=== PATIENT | male | born 1945 | race Caucasian/White ===

== ENCOUNTER → 2019-05-26 | Outpatient (CLI) | payer OTHER, BC ==
[~2019-05-26] MED LIST: ASPIRIN81 M2 PO; CARDIZEM CD120 MG PO; DILTIAZEM ER120 MG PO; FISH OIL 1,2001 EAC3 PO; LIPITOR40 MG PO; LOPRESSOR25 PO; LORTAB 5 MG/5001 TA1; METOPROLOL TART25 MG PO; MULTIVITAMINS PO; NORCO 5-325 TA1 EAC1 PO; PACERONE 200 M200 M1 PO; PACERONE200 MG PO; PEPCID AC20 MG PO; PERIDEX 0.12%473 M1; TAMSULOSIN HCL0.4 M1 PO; VITAMIN D3 PO; VITAMIN D3-ALO1 EACH PO; XARELTO20 MG PO; ZANTAC 150MG T150 M1 PO; ZOCOR 20 MG TAB20 M1 PO
== END ==
LOC: SJCVC 11:05
PROVIDERS: ATTEND Internal Medicine Cardiovascular Disease
DX: R94.31 Abnormal electrocardiogram [ECG] [EKG] (principal); I25.10 Atherosclerotic heart disease of native coronary artery without angina pectoris; I35.0 Nonrheumatic aortic (valve) stenosis; E78.00 Pure hypercholesterolemia, unspecified; R60.9 Edema, unspecified

== ENCOUNTER 2019-08-11 16:58 | Inpatient (IN) | payer OTHER, BC ==
[~2019-08-11] VITALS: Ht 177.8 cm; Wt 94.8 kg
[2019-08-11 16:58] VITALS: BP 143/95
[~2019-08-11 16:58] MED LIST changes: -CARDIZEM CD120 MG PO; -DILTIAZEM ER120 MG PO; -LIPITOR40 MG PO; -METOPROLOL TART25 MG PO; -NORCO 5-325 TA1 EAC1 PO; -PACERONE 200 M200 M1 PO; -PACERONE200 MG PO; -PEPCID AC20 MG PO; -VITAMIN D3 PO; -VITAMIN D3-ALO1 EACH PO; -XARELTO20 MG PO
[2019-08-11 17:48] LABS: ABSOLUTE NEUTROPHILS 4.8 thou/uL (1.4-8.2); EOSINOPHILS 1.5 % (0.0-3.0); HEMATOCRIT 47.7 % (42.0-52.0); HEMOGLOBIN 15.8 gm/dL (14.0-18.0); LYMPHOCYTES 24.7 % (24.0-44.0); MCH 30.4 pg (26.0-34.0); MCHC 33.2 g/dL (28.0-37.0); MCV 91.7 fL (80.0-100.0); MONOCYTES 10.1 % (1.0-8.0); PLATELET COUNT 172 thou/uL (150-400); POLYS 62.7 % (36.0-66.0); WBC 7.7 thou/uL (4.0-11.0)
[2019-08-11 18:00] LABS: CALCIUM 9.4 mg/dL (8.5-10.1); CREATININE 1.3 mg/dL (0.7-1.3); POTASSIUM 4.6 mmol/L (3.5-5.1)
[2019-08-11 18:11] LABS: ALBUMIN 3.9 g/dL (3.4-5.0); MAGNESIUM 2.2 mg/dL (1.8-2.4); TOTAL BILIRUBIN 0.5 mg/dL (<0.1-1.0); TOTAL PROTEIN 7.6 g/dL (6.4-8.2)
[2019-08-11 18:12] LABS: AMP/METHAMP Negative (Negative); BARBITURATES Negative (Negative); BENZODIAZEPINES Negative (Negative); COCAINE Negative (Negative); METHADONE Negative (Negative); OPIATES Negative (Negative); PCP Negative (Negative)
[2019-08-11 18:16] LABS: APTT 27.7 Seconds (24.5-32.8); PROTIME 10.3 Seconds (9.3-11.4)
[2019-08-11 18:18] LABS: TROPONIN-I 0.68 ng/mL (<0.06)
[2019-08-11 20:21] VITALS: BP 107/49
--- NOTE | 2019-08-11 20:35 | NUR ---
CALLED SECOND TIME AND PUT ON HOLD.
[2019-08-11 20:52] VITALS: BP 110/48
[2019-08-11 20:58] LABS: HEMATOCRIT 48.3 % (42.0-52.0); MCH 30.4 pg (26.0-34.0); MCHC 33.1 g/dL (28.0-37.0); MCV 92.1 fL (80.0-100.0); RBC 5.24 mil/uL (4.50-6.00); RDW 15.1 % (10.5-14.5); WBC 10.6 thou/uL (4.0-11.0)
[2019-08-11 21:14] LABS: INR 1.1; PROTIME 11.1 Seconds (9.3-11.4)
[2019-08-11 21:54] LABS: CHOLESTEROL 141 mg/dL (<200); HDL CHOLESTEROL 36 mg/dL (>40); LDL CHOLESTEROL 83 mg/dL (<100); TC:HDL 3.9 Ratio (Not establshd); TRIGLYCERIDE 110 mg/dL (<150); VLDL 22 mg/dL (<40)
[2019-08-11 21:58] VITALS: BP 139/53
[2019-08-11] MEDS ORDERED: VITAMIN D3-ALO1 EACH PO (23:11)
[2019-08-11 23:48] VITALS: BP 104/54
[2019-08-12] VITALS (14 sets, daily range): BP systolic 109–141; BP diastolic 54–68
--- NOTE | 2019-08-12 01:13 | NUR ---
ADMITTED FROM ER PER CART AT 2150. ORIENTED TO ROOM AND FLOOR POLICIES. ADMISSION PRCESS STARTED AND COMPLETED. BENEDICTO CATERING SOUS CHEF HERE TO SEE PATIENT AT 2200. DENIES COMPLAINTS OF CHEST PAIN, SHORTNESS OF AIR OR SYNCOPE. PATIENT IN AFIB ON ADMISSION AND CONVERTED BACK TO SR AT 2350. ON CARDIZEM GTT STARTED IN ER AND INITIATED HEPARIN GTT PER PROTOCOL. CONTINUE TO ASSES CLOSELY.
[2019-08-12 06:02] LABS: CREATININE 1.2 mg/dL (0.7-1.3); POTASSIUM 4.3 mmol/L (3.5-5.1)
[2019-08-12 06:08] LABS: TROPONIN-I 0.98 ng/mL (<0.06)
--- NOTE | 2019-08-12 06:46 | NUR ---
SLEPT MOST OF SHIFT PAST ADMISSION. DENIES COMPLAINTS OF CHEST PAIN OR SHORTNESS OF AIR. TROPONIN REMAINS ELEVATED. UP AD MICHELLE IN ROOM WITH STEADY GAIT. WORKING ON GOALS AND PLAN OF CARE FOR NOC. REMAINS IN SR WITH PVC AND PAC. CONTINUE TO ASSES.
--- NOTE | 2019-08-12 08:09 | NUR ---
PT ASSESSED, VSS, A+OX4, POC REVIEWED WITH PT. HE VERBALIZED UNDERSTANDING, HR IS 62, CARDIZEM GTT DECREASED TO 5 MG/HR, WILL WAIT FOR CARDIO CONSULT, WILL MONITOR
--- NOTE | 2019-08-12 10:23 | NUR ---
PT IN SR, PER DR RUDD BOTH HEPARIN GTT AND CARDIZEM GTT WERE DISCONTINUED.
--- NOTE | 2019-08-12 11:00 | EKG ---
[facility] [place] [address] ELECTROCARDIOGRAM REPORT Name: SEAN DE Room #: 212-P ADM IN M.R.#: [id number] Admission: 08/11/19 Attend Phys: Nelson Arenas MD Discharge: Date of : 47 Report #: [id number] THIS REPORT FOR: cc: Jarrod Harrell James A. DO Park,Elmer Degroot MD ~ THIS REPORT FOR: //name// [facility] ED Test Date: 2019-08-11 Test Time: 17:23:43 Pat Name: SEAN DE Department: Room: [facility] Gender: M [facility] 1945 Requested By: Valeriano Spicer Order Number: [id number] MD: Elmer Harden Measurements Intervals [place] Rate: 149 P: 0 RI: 67 QRS: 24 QRSD: 95 T: 251 QT: 314 QTc: 495 Interpretive Statements Supraventricular tachycardia Repolarization abnormality, prob rate related No previous ECG available for comparison Electronically Signed On 08-12-2019 10:58:16 CDT by Elmer Harden [email or web address] <ELECTRONICALLY SIGNED> By: Elmer Harden MD 08/12/19 1058 172 172 Elmer Harden MD /MIGUEL
--- NOTE | 2019-08-12 11:00 | EKG ---
[facility] [place] [address] ELECTROCARDIOGRAM REPORT Name: SEAN DE Room #: 212-P ADM IN M.R.#: [id number] Admission: 08/11/19 Attend Phys: Nelson Arenas MD Discharge: Date of : 46 Report #: [id number] THIS REPORT FOR: cc: Jarrod Harrell James A. 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
--- NOTE | 2019-08-12 12:38 | CATHLAB ---
[facility] [place] [address] INVASIVE PROCEDURE REPORT Name: SEAN ED Room #: 212-P ADM IN M.R.#: [id number] Admission: 08/11/19 Attend Phys: Nelson Arenas MD Discharge: Date of : 46 Report #: [id number] THIS REPORT FOR: cc: Jarrod Harrell James A. DO Park, Jin S. MD ~ APPROVED REPORT Study performed: 08/12/2019 10:48:06 Patient Details Patient Status: In-Patient Room #: 212 The patient is a 74 year-old male Event Personnel Elmer Harden Warehouse Examiner, Crystal Wells RN RN, Lynette, Janae Monitor, Nessa Vazquez RTR, METAL WELDER Scrub Procedures Performed Art Access - R femoral artery* 47140 Initial Mod Sed Same Phys/QHP Gr5y 516621 86828 Mod Sed Same Phys/QHP Ea 142257 Left Heart Cath w/or w/o Coronaries 3262912 LHC FFR 9904581 FFR Hemostasis w/ Mynx Indication Non-STEMI , Arrhythmia, Palpitations, Atrial fibrillation Risk Factors Hypercholesterolemia, Coronary Artery DiseaseHypertension Procedure Narrative The patient was brought urgently to the Cardiac Catheterization Laboratory and was prepped and draped in a sterile manner. The Right Groin^ was infiltrated with 1% Lidocaine subcutaneous anesthesia. A PINNACLE 4FR Sheath #[id number] sheath was inserted into the RFA^. Coronary angiography was performed using coronary diagnostic catheters. The right coronary system was accessed and visualized with a JR 4 catheter. The left coronary system was accessed and visualized with a JL 5 catheter. The left ventricle was accessed and visualized with a Pigtail catheter. Left ventricular/Aortic Valve gradient assessed via catheter pullback. Pre-demployment femoral angiogram was performed . Closure device was deployed with a 6 Fr Mynx. The patient tolerated the procedure well and there were no complications associated with the procedure. There was no hematoma. [facility] [address] [place] [address] INVASIVE PROCEDURE REPORT Name: SEAN DE Room #: 212-P [facility]#: [id number] Admission: 08/11/19 Attend Phys: Nelson Arenas MD Discharge: Date of : 46 Report #: [id number] Intraoperative Conscious Sedation Sedation start time: 11:04 Case end Time: 12:00 Fentanyl 50.0 mcg Versed 1.0 mg Fluoro Time: 11.25 minutes Dose: DAP 41869.00 cGycm2 1715 mGy Contrast Type and Amount: Omnipaque 165 ml Coronary Angiography The patient's coronary anatomy is left dominant. Diagnostic Cath Left Main Left main artery is a short segment, with no flow-limiting lesions. LAD The LAD is a moderate-sized caliber vessel, traversing the anterior wall and wrapping on the apex. There is a borderline stenosis in the midsegment of the LAD. IFR was positive at 0.86. Diagonal 1 There is a small caliber vessel, with mild disease at the ostium. Circumflex Left circumflex artery is a dominant vessel supplying 3 OM branches and the left PDA. OM1 This is a moderate-sized caliber vessel, with no flow-limiting lesions. OM2 This is a moderate-sized caliber vessel, with no flow-limiting lesions. OM3 This is a moderate-sized caliber vessel, with no flow-limiting lesions. L PDA There is a severe stenosis, 80% in the proximal segment. Right Coronary There is a small caliber vessel, nondominant with mild disease. Left Ventriculography The left ventricle is normal in size with normal contractility. Hemodynamics The aortic pressure is 127/72 mmHg with a mean of 59 mmHg. The left ventricular pressure is 182/15 mmHg with a mean of mmHg. The left ventricular end diastolic pressure is 32 mmHg. Prox LAD iFR pre 1.0 Prox LAD iFR post 0.86 Conclusion 1. Severe two-vessel disease involving the LAD and the left PDA. [facility] [address] [place] [address] INVASIVE PROCEDURE REPORT Name: SEAN DE Room #: 212-P [facility] IN M.R.#: [id number] Admission: 08/11/19 Attend Phys: Nelson Arenas MD Discharge: Date of : 46 Report #: [id number] IFR of 0.86 involving the LAD stenosis. 2. Normal LV systolic function. 3. Aortic stenosis with a peak gradient of approximately 42 mmHg. 4. Recommend CV surgical consultation. <ELECTRONICALLY SIGNED> By: Elmer Harden MD 08/12/19 1236 1236 1236 Elmer Harden MD /INF
--- NOTE | 2019-08-13 01:03 | NUR ---
PT AMBULATING IN HALLWAYS INDEPENDENTLY AND IS TOLERATING WELL. DENIES PAIN. PLAN FOR DISCHARGE HOME 08/12. RESTING COMFORTABLY. NO NEEDS VOICED. CALL LIGHT WITHIN REACH. FREQUENT OBSERVATION.
[2019-08-13 04:10] LABS: HEMATOCRIT 41.7 % (42.0-52.0); MCH 30.1 pg (26.0-34.0); MCHC 32.7 g/dL (28.0-37.0); MCV 92.1 fL (80.0-100.0); RBC 4.53 mil/uL (4.50-6.00); RDW 15.3 % (10.5-14.5)
[2019-08-13 04:12] LABS: HEMOGLOBIN 13.6 gm/dL (14.0-18.0)
[2019-08-13 04:22] LABS: CALCIUM 8.4 mg/dL (8.5-10.1); CREATININE 1.2 mg/dL (0.7-1.3); POTASSIUM 4.4 mmol/L (3.5-5.1)
[2019-08-13 05:11] VITALS: BP 163/73
[2019-08-13 08:45] VITALS: BP 139/61
--- NOTE | 2019-08-13 12:28 | HC ---
[facility] [place] [address] CONSULTATION Name: SEAN DE Room #: 212-P ADM IN .R.#: [id number] Admission: 08/11/19 Attend Phys: Nelson Arenas MD Discharge: Date of : 46 Report #: [id number] THIS REPORT FOR: cc: Jarrod Harrell,Elmer Kowalski MD ~ CC: Jarrod Arenas DATE OF SERVICE: 08/12/2019 CARDIOLOGY CONSULTATION INDICATIONS: Palpitations. HISTORY OF PRESENT ILLNESS: This is a 74-year-old gentleman with a history of aortic stenosis, nonobstructive CAD, edema, hypercholesterolemia and borderline hypertension, presenting with palpitations. He woke up yesterday morning with palpitations and mild diaphoresis. He denies any chest pains, fever, dyspnea or orthopnea. He has had these episodes in the past, usually resolving on its own. The palpitations lasted all day long, with an average heart rate of 150 beats per minute. He decided to come to the ER for an evaluation. Initial ECG revealed SVT at 150 beats per minute. He was given adenosine with the underlying rhythm of atrial fibrillation/atrial flutter. He was started on IV Cardizem and admitted to the hospital. The second troponin is positive at 0.98. He has been exercising at home on a bicycle for 30 minutes without any issues. There is no recent history of fever, cough or chills. PAST MEDICAL HISTORY: Nonobstructive CAD from 2013. History of moderate aortic stenosis with normal LV systolic function, edema, mild hypercholesterolemia, borderline hypertension. History of nonsustained VT evaluated with an EP study remotely, no inducible ventricular arrhythmia with normal AV node function. ALLERGIES: BETA ELLE CAUSES FATIGUE AND DROWSINESS. MEDICATIONS: Include simvastatin 20 mg daily, tamsulosin, aspirin once a day, ranitidine. SOCIAL HISTORY: Negative for tobacco use. FAMILY HISTORY: Negative for premature CAD. REVIEW OF SYSTEMS: A full 10-point review of systems performed. Only the pertinent positives and negatives are described in HPI. PHYSICAL EXAMINATION: [facility] [address] [place] [address] CONSULTATION Name: SEAN DE Shane Room #: 212-P [facility] IN [facility]#: [id number] Admission: 08/11/19 Attend Phys: Nelson Arenas MD Discharge: Date of : 46 Report #: [id number] VITAL SIGNS: Blood pressure is 120/60, heart rate is 70 beats per minute. GENERAL APPEARANCE: This is a well-developed, well-nourished male in no acute distress. HEENT: Normocephalic, atraumatic. Oral mucosa moist. NECK: Supple. LUNGS: Clear to auscultation. CARDIAC: Regular rate and rhythm, S1, S2 positive. ABDOMEN: Soft, nontender. EXTREMITIES: Trace edema, no cyanosis. NEUROLOGIC: Alert and oriented x 3. ECG reveals atrial fibrillation/flutter, nonspecific ST segment abnormality. LABORATORY VALUES: Creatinine is 1.2, hemoglobin is 16. Peak troponin is 0.98. ASSESSMENT AND PLAN: 1. Atrial fibrillation/flutter, spontaneous conversion to sinus rhythm this morning on IV Cardizem. He has a history of these palpitations, usually self-terminating. Given his symptoms, we will need long-term anticoagulation therapy. 2. Coronary artery disease, positive troponins. I am concerned that he has underlying significant coronary artery disease given the abnormal troponin level. The fast heart rates from his atrial fibrillation essentially was a stress test for the patient. I have discussed with him the pros and cons of a cardiac catheterization. He voices understanding and wishes to proceed. 3. Aortic stenosis/moderate, clinically stable with no symptoms of dyspnea or fatigue with exertion. He exercises on a stationary bike for 30 minutes without any issues. 4. Hypercholesterolemia, continue with statin therapy. 5. Hypertension, would initiate Cardizem, both for blood pressure and heart rate control. Avoid beta elle therapy. <ELECTRONICALLY SIGNED> By: Elmer Harden MD 08/13/19 1228 1017 1225 Elmer Harden MD /nt
--- NOTE | 2019-08-13 13:55 | NUR ---
ASSUMED CARE AT 0700, SHIFT ASSESSMENT DONE, MEDS GIVEN, VSS. HAD AN EPISODE OF AFLUTTER LAST NIGHT. HAD HEART CATH DONE, SEVERE BLOCKAGE, DR MORALES CONSULTED AND HAS SEEN THE PATIENT. STARTED ON CARDIZEM AND AMIODORONE, POSSIBLE DC TOMORROW. PLAN IS OUTPATIENT ECHO ON AND DECIDE ABOUT CABG BASED ON RESULT. UP AD MICHELLE, DENIES ANY PAIN, NSR ON TELE. WILL CONTINUE TO ASSESS AND ASSIST WITH ADLs NEEDED.
[2019-08-13 15:40] VITALS: BP 117/54
[2019-08-13 20:15] VITALS: BP 135/64
--- NOTE | 2019-08-14 03:36 | NUR ---
ASSESSMENT DOCUMENTED.PT BEEN RESTING IN NO ACUTE DISTRESS.A/OX4.VSS.SR/SB ON MONITOR.ON RA W/O RESP DISTRESS.UP AD MICHELLE IN THE ROOM.DENIES PALPITATION.POC IS TO POSSIBLY GOING HOME TODAY WITH F/U AT [facility] OFFICE.WILL CONT TO MONITOR.
[2019-08-14 04:45] VITALS: BP 129/60
[2019-08-14 08:00] VITALS: BP 127/62
[2019-08-14 12:00] VITALS: BP 134/57
--- NOTE | 2019-08-14 14:40 | NUR ---
RECEIVED PT'S CARE AROUND 0730; PT. AOX4; DURING AM ASSESSMENT NO C/O PAIN; AM MEDICATIONS GIVEN; EDUCATED ABOUT GOALS THROUGH THE DAY; ASKED ABOUT D/C ORDERS; ST. "DR. RUDD SAID I CAN GO HOME"; EDUCATED ABOUT D/C PROCESS; ST. UNDERSTANDING; PER DR. RUDD UPDATE DR. STRATTON PT. CAN BE D/C TODAY 08/14/2019; DR. STRATTON NOTIFIED; PT. UPDATE ABOUT D/C STIMATED TIMED; ST. UNDERSTANDING; SR ON THE MONITOR; NO C/O CP; ABLE TO AMBULATE AROUND THE UNIT; EDUCATED ABOUT FALL PREVENTIONS; ST. UNDERSTANDING; ASSESSMENT CHARGED; MONITORING; FOLLOWED POC; WAITING FOR D/C ORDERS ON PLACED;
[2019-08-14 15:10] VITALS: BP 134/57
[2019-08-14] MEDS ORDERED: XARELTO20 MG PO (15:49)
[2019-08-14] MEDS ORDERED: CARDIZEM CD120 MG PO (15:50)
[2019-08-14] MEDS ORDERED: PACERONE 200 M200 M1 PO (15:50)
[2019-08-14 16:12] VITALS: BP 134/57
== END 2019-08-14 17:31 | disposition home or self-care (01) | DRG 281 ==
LOC: ER 16:58 → EROBS 19:45 → 2N 19:45
PROVIDERS: Emergency Medicine; Internal Medicine Cardiovascular Disease; Nurse Practitioner Family; ADMIT Hospitalist
PROC: B2111ZZ Fluoroscopy of Multiple Coronary Arteries using Low Osmolar Contrast (ICD-10-PCS; principal; 2019-08-11)
PROC: 5A2204Z Restoration of Cardiac Rhythm, Single (ICD-10-PCS; principal; 2019-08-11)
PROC: B2151ZZ Fluoroscopy of Left Heart using Low Osmolar Contrast (ICD-10-PCS; principal; 2019-08-11)
PROC: 4A023N7 Measurement of Cardiac Sampling and Pressure, Left Heart, Percutaneous Approach (ICD-10-PCS; principal; 2019-08-11)
DX: I21.4 Non-ST elevation (NSTEMI) myocardial infarction (principal); I47.1 Supraventricular tachycardia; I48.92 Unspecified atrial flutter; I48.20 Chronic atrial fibrillation, unspecified; I25.10 Atherosclerotic heart disease of native coronary artery without angina pectoris; R79.89 Other specified abnormal findings of blood chemistry; E78.00 Pure hypercholesterolemia, unspecified; K21.9 Gastro-esophageal reflux disease without esophagitis; I35.0 Nonrheumatic aortic (valve) stenosis; I10 Essential (primary) hypertension; Z96.1 Presence of intraocular lens; Z90.49 Acquired absence of other specified parts of digestive tract; Z79.82 Long term (current) use of aspirin; Z79.899 Other long term (current) drug therapy
CPT/HCPCS: 10081

== ENCOUNTER → 2019-08-16 | Outpatient (CLI) | payer OTHER, BC ==
[~2019-08-16] MED LIST changes: +CARDIZEM CD120 MG PO; +DILTIAZEM ER120 MG PO; +LIPITOR40 MG PO; +PACERONE 200 M200 M1 PO; +PACERONE200 MG PO; +VITAMIN D3 PO; +VITAMIN D3-ALO1 EACH PO; +XARELTO20 MG PO
== END ==
LOC: SJCVCIMAG 07:41
DX: R94.31 Abnormal electrocardiogram [ECG] [EKG] (principal); I35.1 Nonrheumatic aortic (valve) insufficiency; I35.0 Nonrheumatic aortic (valve) stenosis; I35.8 Other nonrheumatic aortic valve disorders; I11.9 Hypertensive heart disease without heart failure; I25.10 Atherosclerotic heart disease of native coronary artery without angina pectoris; E78.00 Pure hypercholesterolemia, unspecified

== ENCOUNTER → 2019-08-24 | Outpatient (CLI) | payer OTHER, BC ==
[~2019-08-24] MED LIST changes: +METOPROLOL TART25 MG PO; +NORCO 5-325 TA1 EAC1 PO; +PEPCID AC20 MG PO
== END ==
LOC: ULTRA 08:45
PROVIDERS: ATTEND Surgery Vascular Surgery
DX: Z01.818 Encounter for other preprocedural examination (principal); Z95.1 Presence of aortocoronary bypass graft

== ENCOUNTER 2019-09-05 06:00 | Inpatient (IN) | payer OTHER, BC ==
[2019-08-24 10:33] LABS: ABSOLUTE NEUTROPHILS 3.7 thou/uL (1.4-8.2); BASOPHILS 0.6 % (0.0-2.0); EOSINOPHILS 1.3 % (0.0-3.0); HEMATOCRIT 45.1 % (42.0-52.0); HEMOGLOBIN 14.9 gm/dL (14.0-18.0); LYMPHOCYTES 24.1 % (24.0-44.0); MCH 30.3 pg (26.0-34.0); MCHC 33.1 g/dL (28.0-37.0); MCV 91.5 fL (80.0-100.0); MONOCYTES 10.2 % (1.0-8.0); PLATELET COUNT 182 thou/uL (150-400); POLYS 63.8 % (36.0-66.0); RBC 4.92 mil/uL (4.50-6.00); RDW 14.4 % (10.5-14.5); URINE BILIRUBIN NEGATIVE (Negative); URINE BLOOD NEGATIVE (Negative); URINE CLARITY CLEAR; URINE COLOR YELLOW; URINE GLUCOSE-RANDOM* NEGATIVE (Negative); URINE KETONES NEGATIVE (Negative); URINE LEUKOCYTES-REFLEX NEGATIVE (Negative); URINE NITRITE-REFLEX NEGATIVE (Negative); URINE PROTEIN (DIPSTICK) NEGATIVE (Negative); URINE SPECIFIC GRAVITY 1.025 (1.005-1.035); URINE UROBILINOGEN 0.2 E.U./dl (0.2-1.0); WBC 5.8 thou/uL (4.0-11.0)
[2019-08-24 10:48] LABS: INR 1.2; PROTIME 12.1 Seconds (9.3-11.4)
[2019-08-24 10:59] LABS: ALBUMIN 3.8 g/dL (3.4-5.0); CALCIUM 8.7 mg/dL (8.5-10.1); CREATININE 1.3 mg/dL (0.7-1.3); POTASSIUM 4.7 mmol/L (3.5-5.1); TOTAL BILIRUBIN 0.6 mg/dL (0.2-1.0)
[2019-08-25 00:08] LABS: GLYCOHEMOGLOBIN (HGB A1C) 6.1 % (4.8-5.6)
[2019-09-05] VITALS (17 sets, daily range): BP systolic 81–118; BP diastolic 40–61
[~2019-09-05] VITALS: Ht 180.3 cm; Wt 104.3 kg
[~2019-09-05 06:00] MED LIST changes: -METOPROLOL TART25 MG PO; -NORCO 5-325 TA1 EAC1 PO
[2019-09-05 14:00] LABS: HEMATOCRIT 24.7 % (42.0-52.0); HEMOGLOBIN 8.2 gm/dL (14.0-18.0); MCH 30.5 pg (26.0-34.0); MCHC 33.1 g/dL (28.0-37.0); MCV 92.3 fL (80.0-100.0); RBC 2.67 mil/uL (4.50-6.00); RDW 14.3 % (10.5-14.5); WBC 11.3 thou/uL (4.0-11.0)
[2019-09-05 14:16] LABS: APTT 37.3 Seconds (24.5-32.8); INR 1.8; PROTIME 18.3 Seconds (9.3-11.4)
[2019-09-05 15:50] LABS: HEMATOCRIT 27.5 % (42.0-52.0); HEMOGLOBIN 9.1 gm/dL (14.0-18.0); MCH 30.5 pg (26.0-34.0); MCHC 33.2 g/dL (28.0-37.0); MCV 91.9 fL (80.0-100.0); RBC 2.99 mil/uL (4.50-6.00); RDW 14.2 % (10.5-14.5); WBC 14.7 thou/uL (4.0-11.0)
[2019-09-05 15:51] LABS: CALCIUM 7.4 mg/dL (8.5-10.1); CREATININE 1.4 mg/dL (0.7-1.3); MAGNESIUM 2.4 mg/dL (1.8-2.4); POTASSIUM 4.3 mmol/L (3.5-5.1)
[2019-09-05 16:23] LABS: APTT 35.8 Seconds (24.5-32.8); FIBRINOGEN 149.6 mg/dL (210-360); INR 1.4; PROTIME 14.2 Seconds (9.3-11.4)
[2019-09-05 16:37] LABS: POC BE 0 mmol/L (-2.0 to +3.0); POC CA IONIZED 4.5 mg/dL (4.5-5.3); POC GLUCOSE 173 mg/dL (70-99); POC HCO3 25.5 mmol/L (22.0-26.0); POC HEMOGLOBIN 8.8 g/dL (14.0-18.0); POC POTASSIUM 4.6 mmol/L (3.5-5.1); POC SODIUM 139 mmol/L (136-145); POC pCO2 45.5 mmHg (35.0-45.0); POC pH 7.358 (7.360-7.450)
[2019-09-05 16:37] LABS: POC BE 1 mmol/L (-2.0 to +3.0); POC CA IONIZED 4.5 mg/dL (4.5-5.3); POC GLUCOSE 146 mg/dL (70-99); POC HCO3 25.5 mmol/L (22.0-26.0); POC HEMOGLOBIN 8.2 g/dL (14.0-18.0); POC POTASSIUM 4.4 mmol/L (3.5-5.1); POC SODIUM 138 mmol/L (136-145); POC pCO2 41.6 mmHg (35.0-45.0); POC pH 7.396 (7.360-7.450)
[2019-09-05 16:37] LABS: POC BE -4 mmol/L (-2.0 to +3.0); POC CA IONIZED 3.9 mg/dL (4.5-5.3); POC GLUCOSE 137 mg/dL (70-99); POC HCO3 20.9 mmol/L (22.0-26.0); POC HEMOGLOBIN 8.5 g/dL (14.0-18.0); POC POTASSIUM 4.8 mmol/L (3.5-5.1); POC SODIUM 140 mmol/L (136-145)
[2019-09-05 16:37] LABS: POC BE -3 mmol/L (-2.0 to +3.0); POC CA IONIZED 4.8 mg/dL (4.5-5.3); POC GLUCOSE 138 mg/dL (70-99); POC HCO3 21.7 mmol/L (22.0-26.0); POC HEMOGLOBIN 8.2 g/dL (14.0-18.0); POC POTASSIUM 4.4 mmol/L (3.5-5.1); POC SODIUM 139 mmol/L (136-145); POC pCO2 32.5 mmHg (35.0-45.0); POC pH 7.432 (7.360-7.450)
[2019-09-05 16:37] LABS: POC BE 0 mmol/L (-2.0 to +3.0); POC CA IONIZED 4.5 mg/dL (4.5-5.3); POC GLUCOSE 159 mg/dL (70-99); POC HCO3 25.6 mmol/L (22.0-26.0); POC HEMOGLOBIN 8.2 g/dL (14.0-18.0); POC POTASSIUM 4.3 mmol/L (3.5-5.1); POC SODIUM 138 mmol/L (136-145); POC pCO2 45.9 mmHg (35.0-45.0); POC pH 7.354 (7.360-7.450)
[2019-09-05 16:37] LABS: POC BE 0 mmol/L (-2.0 to +3.0); POC CA IONIZED 4.6 mg/dL (4.5-5.3); POC GLUCOSE 188 mg/dL (70-99); POC HCO3 25.2 mmol/L (22.0-26.0); POC HEMOGLOBIN 9.2 g/dL (14.0-18.0); POC POTASSIUM 5.2 mmol/L (3.5-5.1); POC SODIUM 139 mmol/L (136-145); POC pCO2 43.4 mmHg (35.0-45.0); POC pH 7.372 (7.360-7.450)
[2019-09-05 16:37] LABS: POC BE -4 mmol/L (-2.0 to +3.0); POC CA IONIZED 4.3 mg/dL (4.5-5.3); POC GLUCOSE 135 mg/dL (70-99); POC HCO3 21.4 mmol/L (22.0-26.0); POC HEMOGLOBIN 8.2 g/dL (14.0-18.0); POC POTASSIUM 4.4 mmol/L (3.5-5.1); POC SODIUM 139 mmol/L (136-145); POC pH 7.394 (7.360-7.450)
[2019-09-05 16:38] LABS: POC BE 0 mmol/L (-2.0 to +3.0); POC CA IONIZED 4.5 mg/dL (4.5-5.3); POC GLUCOSE 201 mg/dL (70-99); POC HCO3 24.8 mmol/L (22.0-26.0); POC HEMOGLOBIN 9.2 g/dL (14.0-18.0); POC POTASSIUM 5.6 mmol/L (3.5-5.1); POC SODIUM 137 mmol/L (136-145); POC pCO2 40.4 mmHg (35.0-45.0); POC pH 7.396 (7.360-7.450)
[2019-09-05 16:38] LABS: POC BE 5 mmol/L (-2.0 to +3.0); POC CA IONIZED 4.6 mg/dL (4.5-5.3); POC GLUCOSE 132 mg/dL (70-99); POC HCO3 29.4 mmol/L (22.0-26.0); POC HEMOGLOBIN 13.9 g/dL (14.0-18.0); POC POTASSIUM 4.6 mmol/L (3.5-5.1); POC SODIUM 139 mmol/L (136-145); POC pCO2 43.2 mmHg (35.0-45.0); POC pH 7.441 (7.360-7.450)
[2019-09-05 16:38] LABS: POC BE -4 mmol/L (-2.0 to +3.0); POC CA IONIZED 3.1 mg/dL (4.5-5.3); POC GLUCOSE 150 mg/dL (70-99); POC HCO3 20.4 mmol/L (22.0-26.0); POC HEMOGLOBIN 10.5 g/dL (14.0-18.0); POC POTASSIUM 3.8 mmol/L (3.5-5.1); POC SODIUM 144 mmol/L (136-145); POC pCO2 33.5 mmHg (35.0-45.0); POC pH 7.394 (7.360-7.450)
[2019-09-05 16:38] LABS: POC BE 0 mmol/L (-2.0 to +3.0); POC CA IONIZED 4.6 mg/dL (4.5-5.3); POC GLUCOSE 195 mg/dL (70-99); POC HCO3 25.6 mmol/L (22.0-26.0); POC HEMOGLOBIN 9.2 g/dL (14.0-18.0); POC POTASSIUM 5.6 mmol/L (3.5-5.1); POC SODIUM 138 mmol/L (136-145); POC pCO2 45.2 mmHg (35.0-45.0); POC pH 7.361 (7.360-7.450)
[2019-09-05 16:38] LABS: POC BE -1 mmol/L (-2.0 to +3.0); POC CA IONIZED 4.4 mg/dL (4.5-5.3); POC GLUCOSE 181 mg/dL (70-99); POC HCO3 23.7 mmol/L (22.0-26.0); POC HEMOGLOBIN 9.5 g/dL (14.0-18.0); POC POTASSIUM 5.1 mmol/L (3.5-5.1); POC SODIUM 137 mmol/L (136-145); POC pCO2 38.5 mmHg (35.0-45.0); POC pH 7.398 (7.360-7.450)
[2019-09-05 17:05] LABS: HEMATOCRIT 29.4 % (42.0-52.0); MCH 31.2 pg (26.0-34.0); MCV 91.8 fL (80.0-100.0); RBC 3.21 mil/uL (4.50-6.00); RDW 14.2 % (10.5-14.5)
[2019-09-05 17:13] LABS: BE(vivo) -7.5 mmol/L (-2 to +3); HCO3 15.8 mmol/L (22.0-26.0); PCO2 25.6 mmHg (35.0-45.0); PO2 112.7 mmHg (80.0-100.0); pH 7.408 (7.360-7.450); sO2 98.2 % (92.0-98.0)
[2019-09-05 17:15] LABS: APTT 36.1 Seconds (24.5-32.8); FIBRINOGEN 175.9 mg/dL (210-360); INR 1.3; PROTIME 13.1 Seconds (9.3-11.4)
[2019-09-05 17:25] LABS: CREATININE 0.9 mg/dL (0.7-1.3); MAGNESIUM 1.5 mg/dL (1.8-2.4); POTASSIUM 3.3 mmol/L (3.5-5.1)
[2019-09-05 17:28] LABS: CALCIUM 5.1 mg/dL (8.5-10.1)
--- NOTE | 2019-09-05 18:08 | NUR ---
ARRIVED ON THE UNIT @ 1640 WITH THE ASSIST OF NURSING STAFF, ANESTHESIOLOGIST , DR MORALES, AND JOSE DAVENPORT. PROPOFOL @ 10 AND LEVO @ 0.06 RUNNING AT ARRIVAL. INITIAL ABG'S ACQUIRED AND RESULTED, THESE RESULTS ARE CALLED TO DR MORALES @ BEDSIDE. 1730 DR MORALES @ BEDSIDE SUCTIONING MEDIASTINAL CHEST TUBE WITH THE ASSIST OF JOSE DAVENPORT, NO COMPLICATIONS NOTED. CMP LABS DRAWN, WHEN RESULTED, RN CALLED FOR A CRITICAL CALCIUM, WHEN RN CHECKED ALL OTHER LABS THAT ARE TESTED IN THE GREEN TUBE. RN NOTED THAT ALL OTHER LABS WERE OFF. SONALI DAVENPORT CALLED TO SEE IF WE CAN GET ORDER TO RE-DRAW NEW LABS, ORDERS GIVEN, LABS DRAWN STAT, NO CRITICALS AT THIS TIME. WILL CONTINUE TO MONITOR.
[2019-09-05 18:09] LABS: CREATININE 1.4 mg/dL (0.7-1.3)
[2019-09-05 18:10] LABS: CALCIUM 7.2 mg/dL (8.5-10.1); POTASSIUM 5.2 mmol/L (3.5-5.1)
[2019-09-05 18:15] LABS: ALBUMIN 2.7 g/dL (3.4-5.0); TOTAL BILIRUBIN 1.5 mg/dL (0.2-1.0); TOTAL PROTEIN 4.7 g/dL (6.4-8.2)
[2019-09-05 19:52] LABS: BE(vivo) -6.2 mmol/L (-2 to +3); HCO3 18.5 mmol/L (22.0-26.0); PCO2 33.6 mmHg (35.0-45.0); PO2 81.9 mmHg (80.0-100.0); pH 7.358 (7.360-7.450); sO2 95.8 % (92.0-98.0)
[2019-09-06] VITALS (12 sets, daily range): BP systolic 92–143; BP diastolic 47–61
[2019-09-06 04:33] LABS: HEMATOCRIT 30.4 % (42.0-52.0); HEMOGLOBIN 10.2 gm/dL (14.0-18.0); MCHC 33.5 g/dL (28.0-37.0); MCV 92.6 fL (80.0-100.0); RBC 3.29 mil/uL (4.50-6.00); RDW 14.4 % (10.5-14.5); WBC 9.4 thou/uL (4.0-11.0)
[2019-09-06 04:49] LABS: CALCIUM 7.2 mg/dL (8.5-10.1); CREATININE 1.3 mg/dL (0.7-1.3); MAGNESIUM 2.2 mg/dL (1.8-2.4); POTASSIUM 4.3 mmol/L (3.5-5.1)
--- NOTE | 2019-09-06 05:35 | NUR ---
Pt has rested at times through the night, afetr receiving prn pain meds, he reports 9-10/10 pain with coughing/deep breathing. Vitals have been stable, CI did drop to 1.8, briefly, one bottle of albumin was given, with good results. The chest tubes did have an episode of drainage, but have been patent, Pleural and Meds at approx 200 ml's. Friend catheter is patent, draining clear yellow urine. Insulin was started last evening for BGL of 174, it is currently infusing at 2 units/hr. Monitor reads SB/SR rates from upper 50's to 70's, rare PVC noted. LCTA, fair non prductive cough, sats 94% and above on 4 L/m. The bed is in the low/locked position, the siderails are up x 4 and the tristan light is within reach. Pt is progressing towards care plan goals.
[2019-09-06 07:09] LABS: HBsAG-EMPLOYEE EXPOSURE Negative (Negative); HCV AB-EMPLOYEE EXPOSURE 0.1 (0.0-0.9)
--- NOTE | 2019-09-06 07:35 | EKG ---
[facility] [place] [address] ELECTROCARDIOGRAM REPORT Name: SEAN DE Room #: 251-P ADM IN M.R.#: [id number] Admission: 09/05/19 Attend Phys: Rodrigo Wallace MD Discharge: Date of : 46 Report #: [id number] THIS REPORT FOR: cc: Jarrod Harrell James A. DO Lundgren, Craig H. 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 : 1945 Requested By: Derek Morgan Order Number: [id number] MD: Alexander Quintana Measurements Intervals [place] Rate: 57 P: -22 KS: 257 QRS: 30 QRSD: 113 T: 37 QT: 539 QTc: 525 Interpretive Statements Sinus rhythm Prolonged KS interval Borderline ST elevation, anterior leads Prolonged QT interval Compared to ECG 08/11/2019 18:46:42 Sinus rhythm has replaced atrial fibrillation Electronically Signed On 09-06-2019 7:34:34 CDT by Alexander Quintana [email or web address] <ELECTRONICALLY SIGNED> By: Alexander Quintana MD, [facility] 09/06/19 0734 1724 1724 Alexander Quintana MD, [facility] /EPI
--- NOTE | 2019-09-06 07:47 | EKG ---
[facility] [place] [address] ELECTROCARDIOGRAM REPORT Name: SEAN DE Room #: 251-P ADM IN M.R.#: [id number] Admission: 09/05/19 Attend Phys: Rodrigo Wallace MD Discharge: Date of : 46 Report #: [id number] THIS REPORT FOR: cc: Jarrod Harrell James A. DO Lundgren, Craig H. 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 DAVIS : 1945 Requested By: Derek Morgan Order Number: [id number] MD: Alexander Quintana Measurements Intervals [place] Rate: 78 P: 87 NE: 218 QRS: 20 QRSD: 106 T: 16 QT: 464 QTc: 529 Interpretive Statements Sinus rhythm Borderline prolonged NE interval Diffuse ST segment elevation consistent with pericarditis Prolonged QT interval Compared to ECG 08/11/2019 18:46:42 No significant change was found Electronically Signed On 09-06-2019 7:46:58 CDT by Alexander Quintana [email or web address] <ELECTRONICALLY SIGNED> By: Alexander Quintana MD, FAC 09/06/19 0746 4 Alexander Quintana MD, FAC /EPI
--- NOTE | 2019-09-06 08:25 | NUR ---
Received consult for diet education. S/P CABG on 09/04. Will await transfer out of ICU and address nutrition education needs.
--- NOTE | 2019-09-06 12:50 | NUR ---
INITIAL ASSESSMENT: Received consult for discharge planning. SW reviewed chart and spoke with hospitalist. Pt is POD #1 of CABG x 2. Pt to have chest tubes removed today. Pt is on 3L of O2. PT/OT evaluated pt earlier today. SW spoke with pt via phone. Introduced role of SW. Pt is alert/orientated x 4. Pt reports he lives at home with his . Prior to admission, pt was independent with ADLs. No use of DME. 2 steps to enter the home. No steps inside. No hx of services or post acute placement. Pt's PCP is Dr. Harrell. Plan is for pt to return home when medically stable. SW following to assist as needed with discharge planning.
--- NOTE | 2019-09-06 15:57 | O ---
[facility] [place] [address] OPERATIVE REPORT Name: SEAN DE Room #: 251-P ADM IN M.R.#: [id number] Admission: 09/05/19 Attend Phys: Rodrigo Wallace MD Discharge: Date of : 47 Report #: [id number] THIS REPORT FOR: cc: Jarrod Harrell James A. DO Forman, John M. MD ~ CC: Jarrod Wallace DATE OF SERVICE: 09/05/2019 PREOPERATIVE DIAGNOSES: Coronary artery disease, calcific aortic stenosis, and atrial fibrillation. POSTOPERATIVE DIAGNOSES: Coronary artery disease, calcific aortic stenosis, and atrial fibrillation. OPERATION: Coronary artery bypass x 2 including left internal mammary artery to left anterior descending artery and saphenous vein to posterior descending distal branch of the circumflex artery and aortic valve replacement with a 23 mm Felipa-Dempsey bioprosthesis and clipping of left atrial appendage and harvest of left greater saphenous vein with an endoscopic approach. SURGEON: Rodrigo Wallace MD DIRECTOR GLOBAL STRATEGIC PUBLISHER SALES: ISSAC Dong. ANESTHESIA: General. INDICATIONS: The patient is a 74-year-old seen for Dr. Harden. The patient has coronary artery disease and aortic valve stenosis. The patient also has a history of paroxysmal atrial fibrillation and is largely in sinus rhythm. Valve was highly calcified and has a peak gradient of 44, valve area of approximately 1 cm2 and has high-grade lesions in the LAD and the distal branch of either co or left dominant circumflex, which is equivalent to posterior descending artery. TECHNIQUE: After general anesthesia was established, saphenous vein was harvested and prepared for use as a conduit. Exposure was obtained through median sternotomy. Left internal mammary artery was harvested from chest wall. Pericardial well was made. Cannulation sutures were placed. Heparin was given. Aorta was cannulated. Right atrium was cannulated. Cardioplegia needle was positioned in the aortic root. Retrograde cardioplegic catheter was placed in coronary sinus. Cardiopulmonary bypass was established. Aorta was cross clamped. Antegrade and retrograde cardioplegia [facility] [address] [place] [address] OPERATIVE REPORT Name: SEAN DE Room #: 251-P [facility] IN M.R.#: [id number] Admission: 09/05/19 Attend Phys: Rodrigo Wallace MD Discharge: Date of : 47 Report #: [id number] were given. Ice was poured in the pericardial well. The heart was stopped. During electromechanical arrest, the distal anastomoses were performed and end-to-side anastomosis was made between vein and the posterior descending branch of the circumflex. Cold cardioplegia was given. Left internal mammary artery was sewn in end-to-side fashion to the left anterior descending artery. Patency of this vessel was checked with the temperature technique. It should be mentioned that prior to performing the coronary bypasses, a left atrial appendage clip was placed using standard technique. After the distal anastomoses were performed, attention was turned to the aortic valve. Cardioplegia was given every 15 minutes through the retrograde catheter and through the bypass graft and additional doses were given through the small right coronary. An aortotomy was made approximately 15 mm above the right coronary ostium. The aortic valve was exposed. The aortic valve was tricuspid but was severely calcified and in fact was much more calcified than I had expected from the gradient. After the valve was excised and the annulus was debrided, the cavity of the ventricle was irrigated to remove any loose debris. Interrupted Ethibond sutures were placed through the torres martinez annulus and then through the sewing ring of a 23 mm device chosen for patient and annulus size. Device was lowered into place and sutures were secured with the Cor-Knot device. Valve appeared to seat nicely. The aortotomy was closed using Carrel technique. Cold cardioplegia was given. One proximal anastomosis was performed. When this was complete, warm retrograde cardioplegia was given followed by warm continuous blood to the coronary sinus. When this infusion was complete, the crossclamp was removed, de-airing maneuvers were performed. The anastomoses were inspected and found to be satisfactory. As the patient warmed, nice cardiac activity resumed, chest tubes and pacing wires were placed, a marker was placed around the proximal anastomosis. When the patient was warm, he was weaned from cardiopulmonary bypass. Venous cannula was removed. Protamine was given, the aortic cannula was removed. Flows were measured in the bypass grafts. When hemostasis was reasonable, chest was closed in the usual fashion. The patient did develop a coagulopathy and required blood and blood products for satisfactory hemostasis. [address] [address] OPERATIVE REPORT Name: SEAN DE Room #: 251-P [facility] IN M.R.#: [id number] Admission: 09/05/19 Attend Phys: Rodrigo Wallace MD Discharge: Date of : 47 Report #: [id number] After the coagulopathy was corrected, the patient was taken to the Intensive Care Unit in satisfactory condition having tolerated the procedure well. All counts reported as correct. <ELECTRONICALLY SIGNED> By: Rodrigo Wallace MD 09/06/19 1557 1959 17 Rodrigo Wallace MD /nt
--- NOTE | 2019-09-06 16:00 | NUR ---
pam called re htn, orders given.
--- NOTE | 2019-09-06 17:10 | NUR ---
pt oob to chair. pain under control.
[2019-09-07] VITALS (23 sets, daily range): BP systolic 86–115; BP diastolic 49–65
[2019-09-07 05:35] LABS: HEMATOCRIT 26.5 % (42.0-52.0); MCH 31.1 pg (26.0-34.0); MCV 91.3 fL (80.0-100.0); RBC 2.9 mil/uL (4.50-6.00); RDW 14.7 % (10.5-14.5); WBC 11.1 thou/uL (4.0-11.0)
[2019-09-07 05:58] LABS: CALCIUM 7.7 mg/dL (8.5-10.1); CREATININE 1.5 mg/dL (0.7-1.3); POTASSIUM 4.4 mmol/L (3.5-5.1)
--- NOTE | 2019-09-07 12:04 | NUR ---
ASSUMED CARE @ 0700 09/07/19, PT ASSESSMENTS AND VSS COMPLETE PER ICU PROTOCOL. DR MORTON HERE IN THE AM TO ROUND, NO NEW ORDERS PLACED. SONALI DAVENPORT HERE IN THE AM TO ROUND, ORDERS RECIEVED AND EXECUTED. DR RUDD ALSO HERE TO ROUND, HE OBSERVES THAT PT IS IN A-FIB, HE DIRECTS RN TO GIVE 400MG OF AMIO INSTEAD OF 200MG OF AMIO, THIS IS EXECUTED. RN NOTICES THAT PT HAS MADE ONLY 20ML 9AM-10AM AND 20ML 10AM-11AM, SONALI DAVENPORT NOTIFIED, NS @ 100ML/HR ORDERED AT THIS TIME. REPORT GIVEN TO SVETLANA BROWN @ 9925.
--- NOTE | 2019-09-07 15:15 | NUR ---
RN ASSUMED CARE OF PATIENT AROUND 1100. PATIENT SITTING IN CHAIR. NO COMPLAINTS AT THIS TIME. PATIENT VOIDING 100, PER URINAL. POST VOID BLADDER SCAN DONE AND 0ML WERE NOTED TO BE IN BLADDER. PATIENT DISCHARGED HOME AT 1445. DISCHARGE AND FOLLOW UP INSTRUCTIONS WERE DISCUSSED WITH PATIENT.
--- NOTE | 2019-09-07 15:16 | NUR ---
ASSESSMENTS AND INTERVENTIONS DOCCUMENTED. RN ASSUMED CARE AT 1100. PATIENT RESTING IN CHAIR. INSTRUCTIONS RECIEVED FROM ISSAC. PATIENT HAVING DIFFICULTY WALKING AND C/O DIZZINESS. PATIENT IN BED AT THIS TIME. UO FOR LAST HOUR REMIANS LESS THAN 30CC. ORDERS RECIEVED FROM SONALI DAVENPORT FOR 250CC BOLUS.
--- NOTE | 2019-09-07 16:07 | PATH ---
[facility] [address] [place] [address] PATHOLOGY RPT PROCEDURE Name: PAULO DE Room #: 251-P ADM IN M.R.#: [id number] Admission: 09/05/19 Date of : 47 Discharge: Report #: [id number] Path Case #: [id number] L[facility] Accession Number: [id number] . 01 Material submitted: . aortic body - AORTIC VALVE . 01 Clinical history: . Pre-op diagnosis: Coronary artery disease, aortic stenosis, A. fib Post-op diagnosis: Coronary artery disease . 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 (IUV:taxation economist; 09/07/2019) MBR 09/07/2019 1358 Local . 02 Electronically signed: . Neva Hill MD, Pathologist NPI- [id number] . 01 Gross description: . The specimen is received in formalin, labeled "Paulo De, aortic valve". Received are multiple segments of moderately calcified vascular tissue measuring 3.3 x 2.8 x 0.8 cm in aggregate dimensions. The specimen is submitted representatively in cassette A1, following light decalcification. (CAA; 09/06/2019) QAC/QA 09/06/2019 1058 Local . 02 Pathologist provided ICD-10: I70.0 . 02 CPT . 013632, [id number] Specimen Comment: A courtesy copy of this report has been sent to [phone] Specimen Comment: [phone], Specimen Comment: Report sent to ,DR RUDD / DR DUMONT Performed at: 01 [facility] [address] [facility] [address], [place] [id number] MD Salo Crum MD Phone: [phone] Performed at: [address] [id number] [address] [address] PATHOLOGY RPT PROCEDURE Name: PAULO DE Room #: 251-P ADM IN M.R.#: [id number] Admission: 09/05/19 Date of : 47 Discharge: Report #: [id number] Path Case #: [id number] MD Neva Hill MD Phone: [phone]
[2019-09-08] VITALS (14 sets, daily range): BP systolic 100–134; BP diastolic 43–74
--- NOTE | 2019-09-08 05:51 | NUR ---
Received report and assumed patient care at 0000. Patient is AAOx4 and noted to be in A-fib. Patient has no c/o pain. No acute events occurred and VS remained stable. Patient is progressing towards goal.
--- NOTE | 2019-09-08 10:43 | NUR ---
RECEIVED TRANSFER ORDERS. PATIENT TO GO TO CCU ROOM 213. CALLED PATIENT REPORT TO NURSE KASEY ON CCU AT 1000. PHYSICAL THERAPIST IN ROOM WITH PATIENT AT THIS TIME; ASSISTED THIS NURSE TO TRANSFER PATIENT FROM CHAIR TO WHEELCHAIR. TRANSFERRED PATIENT TO CCU VIA WHEELCHAIR. PATIENT BELONGINGS SENT WITH PATIENT. MOVED PATIENT FROM WHEELCHAIR TO RECLINER IN ROOM. CONNECTED MANAGER SOCIAL BOX TO PATIENT AND REMOVED ICU MONITOR. NOTIFIED RECEIVING NURSE OF PATIENT ARRIVAL. PATIENT SITTING UP IN CHAIR ON 4L OXYGEN PER NASAL CANNULA. CALL LIGHT, URINAL, IS, WATER, AND PERSONAL PHONE WITHIN REACH. PATIENT DENIES ANY FURTHER NEEDS. RECEIVING NURSE ARRIVED TO ROOM. GAVE REPORT THAT SONALI DAVENPORT WANTS A CBC AND BMP DRAWN ON PATIENT THIS MORNING.
[2019-09-08 11:22] LABS: HEMATOCRIT 27.9 % (42.0-52.0); HEMOGLOBIN 9.1 gm/dL (14.0-18.0); MCH 30.7 pg (26.0-34.0); MCHC 32.5 g/dL (28.0-37.0); MCV 94.5 fL (80.0-100.0); RBC 2.96 mil/uL (4.50-6.00); WBC 12.8 thou/uL (4.0-11.0)
[2019-09-08 11:30] LABS: CALCIUM 8.1 mg/dL (8.5-10.1); CREATININE 1.6 mg/dL (0.7-1.3); POTASSIUM 5.1 mmol/L (3.5-5.1)
--- NOTE | 2019-09-08 12:46 | NUR ---
SW reviewed chart and spoke with attending physician. Pt is s/p CABG x 2. Pt remains on O2 and is working with therapy. Pt transferred from ICU to CCU earlier today. No weekend discharge anticipated. Will need rest/exercise oximetry prior to discharge to determine if home O2 is needed. KATJA is following to assist as needed with discharge planning.
--- NOTE | 2019-09-08 16:48 | NUR ---
PT CARE ASSUMED APPROX 1030. ASSESSMENTS CHARTED. PT DENIES PAIN AND SOA. REPOTS DIZZINESS WITH TRANSFER AND AMBULATION. PT WAS UNABLE TO TOLERATE AMBULATING MORE THAN A FEW FEET. DR MORALES AWARE. PT'S WAS AT BEDSIDE THIS SHIFT. SHE DENIED QUESTIONS OR CONCERNS REGARDING POC. VSS. UP TO CHAIR FOR MOST OF SHIFT. PT VOIDED ONCE SINCE URINARY CATH REMOVED. URINE OUTPUT REMAINS POOR. IVF COMPLETE. PT RESTING IN BED AT THIS TIME. NO DISTRESS NOTED.
--- NOTE | 2019-09-09 05:11 | NUR ---
ASSSESSMENTS CHARTED, MEDS CHARTED GIVEN. PATIENT ARRIVED FROM ICU TODAY POST CABG AND AVR. PATIENT IN CONTROLLED AFIB, ON 5 LITERS NC, USING IS FREQUENTLY GETTING IT UP TO 1000. FAILED TO HAVE A BOWEL MOVMENT, GOOD URINE OUTPUT. ACHS, NO COVERAGE NEEDED AT HS. GOTTEN UP ONCE TO BATHROOM, TWICE TO USE URINAL AT SIDE OF BED, AND ONCE TO MOVE TO RECLINER. DENIES PAIN NEEDING MEDS. FALL PRECAUTIONS IN PLACE DURING SHIFT.
[2019-09-09 05:15] VITALS: BP 144/66
[2019-09-09 05:54] LABS: HEMATOCRIT 25.9 % (42.0-52.0); HEMOGLOBIN 8.8 gm/dL (14.0-18.0); MCH 31.3 pg (26.0-34.0); MCHC 33.9 g/dL (28.0-37.0); MCV 92.4 fL (80.0-100.0); RBC 2.8 mil/uL (4.50-6.00); RDW 14.6 % (10.5-14.5)
[2019-09-09 06:19] LABS: CALCIUM 8.2 mg/dL (8.5-10.1); CREATININE 1.4 mg/dL (0.7-1.3); POTASSIUM 5.2 mmol/L (3.5-5.1)
[2019-09-09 07:37] VITALS: BP 112/64
[2019-09-09 09:19] LABS: MAGNESIUM 2.7 mg/dL (1.8-2.4)
--- NOTE | 2019-09-09 11:52 | EKG ---
[facility] [place] [address] ELECTROCARDIOGRAM REPORT Name: SEAN DE Room #: 213-P ADM IN M.R.#: [id number] Admission: 09/05/19 Attend Phys: Rodrigo Wallace MD Discharge: Date of : 47 Report #: [id number] THIS REPORT FOR: cc: Jarrod Harrell James A. DO Couchonnal, Luis F. MD ~ THIS REPORT FOR: //name// [facility] Test Date: 2019-09-09 Test Time: 07:26:51 Pat Name: SEAN DE Department: Room: 213 P Gender: M Medical Appliance Maker: Shyam DAVIS : 1945 Requested By: Ted Acrher Order Number: [id number] MD: Otto Kellogg Measurements Intervals [place] Rate: 81 P: MT: QRS: 42 QRSD: 99 T: -30 QT: 402 QTc: 467 Interpretive Statements Atrial fibrillation Borderline T abnormalities, inferior leads Compared to ECG 09/06/2019 07:05:39 T-wave abnormality now present Electronically Signed On 09-09-2019 11:51:50 CDT by Otto Kellogg [email or web address] <ELECTRONICALLY SIGNED> By: Otto Kellogg MD 09/09/19 1151 5 5 Otto Kellogg MD /EPI
[2019-09-09 12:49] VITALS: BP 111/56
--- NOTE | 2019-09-09 16:04 | NUR ---
ASSUMED PATIENT CARE AT APPROXIMATELY 0700 TODAY. PATIENT AWAKE AND ALERT. ASSESSMENT AND MEDICATIONS CHARTED. PATIENT AMBULATED IN HALLWAY X2 TODAY AND IN ROOM WITH NURSE X2. PATIENT REMINDED TO OBSERVE STERNAL PRECAUTIONS WITH ACTIVITY AND TRANSFERS. PATIENT DEMONSTRATED UNDERSTANDING. SOB NOTED WITH ACTIVITY, AMBULATING WITH OXYGEN IN PLACE. PAIN MANAGED WITH TYLENOL X1 THIS SHIFT. UP IN CHAIR FROM BREAKFAST TO AFTER LUNCH. VSS. STERNAL LAKHWINDER DRESSING DRY AND INTACT.
[2019-09-09 16:20] VITALS: BP 135/50
[2019-09-09 20:30] VITALS: BP 118/61
--- NOTE | 2019-09-10 04:01 | NUR ---
ASSESSMENTS CHARTED, MEDS GIVEN CHARTED. PATIENT RESTING IN BED DURING SHIFT. CHANGED LINENS AND GOWN THEN WALKED THE LENGTH OF THE UNIT, TRIED TO HAVE A BOWEL MOVEMENT BEFORE GOING BACK TO BED. ACHS DID NOT REQUIRE COVERAGE AT HS. TRIED LATER IN SHIFT TO HAVE A BOWEL MOVMENT AND AGAIN WAS UNABLE. FALL PRECAUTIONS IN PLACE DURING SHIFT. DENIED PAIN THAT REQUIRED AND MEDICATION.
[2019-09-10 04:45] VITALS: BP 117/62
[2019-09-10 04:51] LABS: CALCIUM 7.9 mg/dL (8.5-10.1); CREATININE 1.2 mg/dL (0.7-1.3); MAGNESIUM 2.4 mg/dL (1.8-2.4); POTASSIUM 4.4 mmol/L (3.5-5.1)
[2019-09-10 05:08] LABS: HEMATOCRIT 25.2 % (42.0-52.0); HEMOGLOBIN 8.3 gm/dL (14.0-18.0); MCH 30.2 pg (26.0-34.0); MCHC 32.8 g/dL (28.0-37.0); MCV 92.1 fL (80.0-100.0); RBC 2.74 mil/uL (4.50-6.00); RDW 14.3 % (10.5-14.5); WBC 12.6 thou/uL (4.0-11.0)
[2019-09-10 07:15] VITALS: BP 132/67
[2019-09-10 11:20] VITALS: BP 148/89
[2019-09-10] MEDS ORDERED: PACERONE 200 M200 M1 PO (11:20)
[2019-09-10] MEDS ORDERED: METOPROLOL TART25 MG PO (11:21)
[2019-09-10] MEDS ORDERED: NORCO 5-325 TA1 EAC1 PO (11:22)
[2019-09-10 12:26] VITALS: BP 132/67
--- NOTE | 2019-09-10 14:10 | NUR ---
ASSUMED PATIENT CARE TODAY AT APPROXIMATELY 0700. MEDS AND ASSESSMENTS CHARTED. WEANED PATIENT OFF O2 THIS SHIFT. EXERCISE PULSE OX TEST COMPLETED BY RT AND PATIENT O2 SAT REMAINED STABLE ON ROOM AIR. SEEN BY DR. MORALES AND ORDERS GIVEN FOR PATIENT TO REMOVE ALL DRESSINGS TO CHEST AND FOR PATIENT TO SHOWER PRIOR TO DISCHARGE. SEEN BY CARDIO AND HOSPITALIST AND DISCHARGE ORDERS RECIEVE. CARDIO STATES OK FOR PATIENT TO RESUME XARELTO AT HOME. REVIEWED HOME MEDS WITH AND PATIENT. DRESSINGS TO CHEST REMOVED AND REDRESSED. PATIENT AND EDUCATED ON WOUND CARE TO LEG AND INSTRUCTED NOT TO REMOVE LAKHWINDER UNTIL HE IS SEEN BY DR. MORALES IN THE OFFICE. REPORTS UNDERSTANDING OF ALL TEACHING GIVEN AT THIS TIME. WALKER GIVEN TO PATIENT BY PT PRIOR TO DISCHARGE. PATIENT LEFT UNIT WITH ALL PERSONAL BELONGINGS. WHEELED OFF UNIT VIA WHEELCHAIR. LEFT IN STABLE CONDITION
== END 2019-09-10 13:00 | disposition home or self-care (01) | DRG 219 ==
LOC: ICU 06:00 → TBA 06:00 → PRE 08:04 → ICU 16:51 → 2N 09-08 10:31
PROVIDERS: Nurse Practitioner; Physician Assistant; ADMIT Surgery Vascular Surgery; ATTEND Surgery Vascular Surgery
PROC: 02U Heart and Great Vessels, Supplement (ICD-10-PCS; principal; 2019-09-05)
PROC: 30233N1 Transfusion of Nonautologous Red Blood Cells into Peripheral Vein, Percutaneous Approach (ICD-10-PCS; principal; 2019-09-05)
PROC: 06BQ4ZZ Excision of Left Saphenous Vein, Percutaneous Endoscopic Approach (ICD-10-PCS; principal; 2019-09-05)
PROC: 0210099 Bypass Coronary Artery, One Artery from Left Internal Mammary with Autologous Venous Tissue, Open Approach (ICD-10-PCS; principal; 2019-09-05)
PROC: 02RF08Z Replacement of Aortic Valve with Zooplastic Tissue, Open Approach (ICD-10-PCS; principal; 2019-09-05)
PROC: 021009W Bypass Coronary Artery, One Artery from Aorta with Autologous Venous Tissue, Open Approach (ICD-10-PCS; principal; 2019-09-05)
PROC: 30233R1 Transfusion of Nonautologous Platelets into Peripheral Vein, Percutaneous Approach (ICD-10-PCS; principal; 2019-09-05)
PROC: 02L73CK Occlusion of Left Atrial Appendage with Extraluminal Device, Percutaneous Approach (ICD-10-PCS; principal; 2019-09-05)
PROC: 05HM33Z Insertion of Infusion Device into Right Internal Jugular Vein, Percutaneous Approach (ICD-10-PCS; principal; 2019-09-05)
PROC: 30233M1 Transfusion of Nonautologous Plasma Cryoprecipitate into Peripheral Vein, Percutaneous Approach (ICD-10-PCS; principal; 2019-09-05)
DX: I25.10 Atherosclerotic heart disease of native coronary artery without angina pectoris (principal); E43 Unspecified severe protein-calorie malnutrition; I35.0 Nonrheumatic aortic (valve) stenosis; I48.0 Paroxysmal atrial fibrillation; E78.00 Pure hypercholesterolemia, unspecified; D64.9 Anemia, unspecified; K21.9 Gastro-esophageal reflux disease without esophagitis; D69.6 Thrombocytopenia, unspecified; I10 Essential (primary) hypertension; Z96.1 Presence of intraocular lens; E78.5 Hyperlipidemia, unspecified; Z95.1 Presence of aortocoronary bypass graft; Z95.2 Presence of prosthetic heart valve; Z79.899 Other long term (current) drug therapy; Z68.32 Body mass index [BMI] 32.0-32.9, adult; Z79.82 Long term (current) use of aspirin; Z79.891 Long term (current) use of opiate analgesic; Z79.01 Long term (current) use of anticoagulants; Z90.10 Acquired absence of unspecified breast and nipple; Z90.89 Acquired absence of other organs; Z90.49 Acquired absence of other specified parts of digestive tract
CPT/HCPCS: 10078; 10081; 10203; 47000; 47001; 47002; 47297; 47335; 48888; 50010; 50249; 50409; 50456; 50498; 50668; 51301; 51932; 52131; 52259; 52287; 52314; 53327; 53358; 53622; 54118; 56455; 56524; 56525; 56526; 56527; 56528; 56531; 56534; 56668; 56719; 56760; 56898; 57080; 57081; 57082; 57093; 57116; 57167; 57224; 62110; 62950; 65003; 65020; 65047; 65090; 65120; 65130; 65135; 83006

== ENCOUNTER → 2019-09-27 | Outpatient (CLI) | payer OTHER, BC ==
[~2019-09-27] MED LIST changes: +METOPROLOL TART25 MG PO; +NORCO 5-325 TA1 EAC1 PO
== END ==
LOC: SJCVC 10:04
PROVIDERS: ATTEND Internal Medicine Cardiovascular Disease
DX: R94.31 Abnormal electrocardiogram [ECG] [EKG] (principal); I48.91 Unspecified atrial fibrillation; I25.10 Atherosclerotic heart disease of native coronary artery without angina pectoris; I35.0 Nonrheumatic aortic (valve) stenosis; I10 Essential (primary) hypertension; E78.00 Pure hypercholesterolemia, unspecified

== ENCOUNTER → 2019-10-11 | Outpatient (CLI) | payer OTHER, BC | LOC: SJCVC 13:02 | PROVIDERS: ATTEND Internal Medicine Cardiovascular Disease | DX: R94.31 Abnormal electrocardiogram [ECG] [EKG] (principal); I44.39 Other atrioventricular block; I48.91 Unspecified atrial fibrillation; I48.3 Typical atrial flutter; I25.10 Atherosclerotic heart disease of native coronary artery without angina pectoris; I35.0 Nonrheumatic aortic (valve) stenosis; E78.00 Pure hypercholesterolemia, unspecified; I25.2 Old myocardial infarction; Z95.1 Presence of aortocoronary bypass graft; Z79.899 Other long term (current) drug therapy ==

== ENCOUNTER → 2019-10-13 | Outpatient (CLI) | payer OTHER, BC | LOC: LAB 09:03 | PROVIDERS: ATTEND Internal Medicine Cardiovascular Disease | DX: Z01.818 Encounter for other preprocedural examination (principal); Z11.59 Encounter for screening for other viral diseases ==

== ENCOUNTER → 2019-10-17 | Outpatient (CLI) | payer OTHER, BC ==
[~2019-10-17] VITALS: Ht 177.8 cm; Wt 90.7 kg
[2019-10-17 07:27] LABS: ABSOLUTE NEUTROPHILS 4.3 thou/uL (1.4-8.2); BASOPHILS 0.7 % (0.0-2.0); EOSINOPHILS 1.7 % (0.0-3.0); HEMATOCRIT 39.7 % (42.0-52.0); HEMOGLOBIN 12.9 gm/dL (14.0-18.0); LYMPHOCYTES 18.7 % (24.0-44.0); MCH 29.3 pg (26.0-34.0); MCHC 32.4 g/dL (28.0-37.0); MCV 90.7 fL (80.0-100.0); MONOCYTES 9.7 % (1.0-8.0); PLATELET COUNT 197 thou/uL (150-400); POLYS 69.2 % (36.0-66.0); RBC 4.38 mil/uL (4.50-6.00); RDW 16.2 % (10.5-14.5); WBC 6.2 thou/uL (4.0-11.0)
[2019-10-17 07:28] VITALS: BP 125/76
[2019-10-17 07:36] LABS: CALCIUM 8.6 mg/dL (8.5-10.1); CREATININE 1.4 mg/dL (0.7-1.3); POTASSIUM 4.4 mmol/L (3.5-5.1)
[2019-10-17 07:38] LABS: APTT 36.6 Seconds (24.5-32.8); INR 1.5
[2019-10-17 07:44] LABS: ALBUMIN 3.5 g/dL (3.4-5.0); TOTAL BILIRUBIN 0.8 mg/dL (0.2-1.0); TOTAL PROTEIN 7.2 g/dL (6.4-8.2)
--- NOTE | 2019-10-19 15:34 | P ---
[facility] [place] [address] PROCEDURE REPORT Name: SEAN DE Room #: [facility]#: [id number] Admission: 10/17/19 Attend Phys: Otto Kellogg MD Discharge: Date of : 47 Report #: [id number] THIS REPORT FOR: cc: Jarrod Harrell,Otto Gustafson MD ~ CC: Jarrod Kellogg DATE OF SERVICE: 10/19/2019 CARDIOVERSION PREOPERATIVE DIAGNOSIS: Atrial fibrillation. POSTOPERATIVE DIAGNOSIS: Atrial fibrillation. PROCEDURES PERFORMED: DC cardioversion. DESCRIPTION OF PROCEDURE: The patient underwent informed consent. He was prepped and draped in a standard fashion. He was then sedated by the Anesthesiology service. Once sedated, he underwent a 200 joule synchronized cardioversion with episcopal of sinus rhythm. CONCLUSIONS: Successful DC cardioversion with episcopal of sinus rhythm. <ELECTRONICALLY SIGNED> By: Otto Kellogg MD 10/19/19 1534 0838 [id number] Otto Kellogg MD /nt
== END | disposition home or self-care (01) ==
LOC: CATH 06:32
PROVIDERS: ATTEND Internal Medicine Cardiovascular Disease
DX: I48.91 Unspecified atrial fibrillation (principal); I25.10 Atherosclerotic heart disease of native coronary artery without angina pectoris; Z79.899 Other long term (current) drug therapy; Z98.890 Other specified postprocedural states; Z72.89 Other problems related to lifestyle; Z95.1 Presence of aortocoronary bypass graft
CPT/HCPCS: 62110; 62900

== ENCOUNTER → 2019-11-16 | Outpatient (CLI) | payer OTHER, BC | LOC: SJCVC 14:24 | PROVIDERS: ATTEND Internal Medicine Cardiovascular Disease | DX: I48.0 Paroxysmal atrial fibrillation (principal); R94.31 Abnormal electrocardiogram [ECG] [EKG]; I25.10 Atherosclerotic heart disease of native coronary artery without angina pectoris; E78.00 Pure hypercholesterolemia, unspecified; I10 Essential (primary) hypertension; Z95.1 Presence of aortocoronary bypass graft; Z79.899 Other long term (current) drug therapy ==

== ENCOUNTER → 2019-11-21 | Outpatient (CLI) | payer OTHER, BC | LOC: SJCVCIMAG 12:54 | PROVIDERS: ATTEND Internal Medicine Cardiovascular Disease | DX: I34.0 Nonrheumatic mitral (valve) insufficiency (principal); R94.31 Abnormal electrocardiogram [ECG] [EKG]; I11.9 Hypertensive heart disease without heart failure; I49.9 Cardiac arrhythmia, unspecified; I25.10 Atherosclerotic heart disease of native coronary artery without angina pectoris; I48.0 Paroxysmal atrial fibrillation; I25.2 Old myocardial infarction; Z95.2 Presence of prosthetic heart valve; Z79.899 Other long term (current) drug therapy ==

== ENCOUNTER → 2020-02-20 | Outpatient (CLI) | payer OTHER, BC | LOC: SJCVC 14:47 | PROVIDERS: ATTEND Internal Medicine Cardiovascular Disease | DX: I48.91 Unspecified atrial fibrillation (principal); R94.31 Abnormal electrocardiogram [ECG] [EKG]; I25.10 Atherosclerotic heart disease of native coronary artery without angina pectoris; I10 Essential (primary) hypertension; Z95.1 Presence of aortocoronary bypass graft; Z79.82 Long term (current) use of aspirin; Z79.899 Other long term (current) drug therapy ==

== ENCOUNTER → 2020-05-23 | Outpatient (CLI) | payer OTHER, BC | LOC: SJCVC 12:57 | PROVIDERS: ATTEND Internal Medicine Cardiovascular Disease | DX: R94.31 Abnormal electrocardiogram [ECG] [EKG] (principal); R00.1 Bradycardia, unspecified; I25.10 Atherosclerotic heart disease of native coronary artery without angina pectoris; I35.0 Nonrheumatic aortic (valve) stenosis; I48.91 Unspecified atrial fibrillation; I10 Essential (primary) hypertension; E78.00 Pure hypercholesterolemia, unspecified; I25.2 Old myocardial infarction; Z90.49 Acquired absence of other specified parts of digestive tract; Z98.890 Other specified postprocedural states; Z95.1 Presence of aortocoronary bypass graft; Z88.0 Allergy status to penicillin; Z88.8 Allergy status to other drugs, medicaments and biological substances; Z79.82 Long term (current) use of aspirin; Z79.899 Other long term (current) drug therapy; Z82.49 Family history of ischemic heart disease and other diseases of the circulatory system ==

== ENCOUNTER → 2020-07-10 | Outpatient (CLI) | payer OTHER, BC | LOC: SJCVC 10:53 | PROVIDERS: ATTEND Internal Medicine Cardiovascular Disease | DX: T14.8XXA Other injury of unspecified body region, initial encounter (principal); I25.10 Atherosclerotic heart disease of native coronary artery without angina pectoris; E78.00 Pure hypercholesterolemia, unspecified; I10 Essential (primary) hypertension; Z95.1 Presence of aortocoronary bypass graft; Z90.89 Acquired absence of other organs; Z88.8 Allergy status to other drugs, medicaments and biological substances; X58.XXXA Exposure to other specified factors, initial encounter; Y93.89 Activity, other specified; Y92.89 Other specified places as the place of occurrence of the external cause; Y99.8 Other external cause status ==

== ENCOUNTER → 2020-08-14 | Outpatient (CLI) | payer OTHER, BC | LOC: SJCVC 12:59 | PROVIDERS: ATTEND Internal Medicine Cardiovascular Disease | DX: R94.31 Abnormal electrocardiogram [ECG] [EKG] (principal); I48.0 Paroxysmal atrial fibrillation; I25.10 Atherosclerotic heart disease of native coronary artery without angina pectoris; I10 Essential (primary) hypertension; E78.00 Pure hypercholesterolemia, unspecified; Z88.8 Allergy status to other drugs, medicaments and biological substances; Z95.1 Presence of aortocoronary bypass graft; Z90.49 Acquired absence of other specified parts of digestive tract; Z79.82 Long term (current) use of aspirin; Z79.899 Other long term (current) drug therapy ==

== ENCOUNTER → 2020-10-01 | Outpatient (CLI) | payer OTHER, BC | LOC: SJCVC 16:20 | PROVIDERS: ATTEND Internal Medicine Cardiovascular Disease | DX: R94.31 Abnormal electrocardiogram [ECG] [EKG] (principal); I25.10 Atherosclerotic heart disease of native coronary artery without angina pectoris; I48.0 Paroxysmal atrial fibrillation; I10 Essential (primary) hypertension; R60.0 Localized edema; E78.00 Pure hypercholesterolemia, unspecified; Z79.82 Long term (current) use of aspirin; Z79.899 Other long term (current) drug therapy; Z95.1 Presence of aortocoronary bypass graft; Z79.01 Long term (current) use of anticoagulants; Z91.040 Latex allergy status; Z88.8 Allergy status to other drugs, medicaments and biological substances ==

== ENCOUNTER → 2020-10-08 | Outpatient (CLI) | payer OTHER, BC | LOC: SJCVC 11:33 | PROVIDERS: ATTEND Internal Medicine Cardiovascular Disease | DX: R94.31 Abnormal electrocardiogram [ECG] [EKG] (principal); I49.1 Atrial premature depolarization; I48.0 Paroxysmal atrial fibrillation; I48.3 Typical atrial flutter; I49.5 Sick sinus syndrome; I35.0 Nonrheumatic aortic (valve) stenosis; I25.10 Atherosclerotic heart disease of native coronary artery without angina pectoris; E78.00 Pure hypercholesterolemia, unspecified; Z95.1 Presence of aortocoronary bypass graft; Z91.040 Latex allergy status; Z88.8 Allergy status to other drugs, medicaments and biological substances; Z91.048 Other nonmedicinal substance allergy status; Z79.82 Long term (current) use of aspirin; Z79.899 Other long term (current) drug therapy; Z85.46 Personal history of malignant neoplasm of prostate ==

== ENCOUNTER → 2020-11-18 | Outpatient (CLI) | payer OTHER, BC ==
[~2020-11-18] MED LIST changes: +ELIQUIS5 MG PO
[2020-11-18 09:38] LABS: HEMATOCRIT 45.7 % (42.0-52.0); HEMOGLOBIN 15.1 gm/dL (14.0-18.0); RBC 5.03 mil/uL (4.50-6.00); RDW 14.8 % (10.5-14.5)
[2020-11-18 09:50] LABS: ALBUMIN 3.6 g/dL (3.4-5.0); CALCIUM 8.7 mg/dL (8.5-10.1); CREATININE 1.1 mg/dL (0.7-1.3); POTASSIUM 4.9 mmol/L (3.5-5.1); TOTAL PROTEIN 7.1 g/dL (6.4-8.2)
== END ==
LOC: CAT 08:34
PROVIDERS: ATTEND Internal Medicine Cardiovascular Disease
DX: Z01.818 Encounter for other preprocedural examination (principal); I25.10 Atherosclerotic heart disease of native coronary artery without angina pectoris; N28.1 Cyst of kidney, acquired; I48.91 Unspecified atrial fibrillation; Z95.2 Presence of prosthetic heart valve

== ENCOUNTER 2020-11-20 06:18 | Observation (INO) | payer OTHER, BC ==
[2020-11-20] VITALS (7 sets, daily range): BP systolic 103–151; BP diastolic 51–81
[~2020-11-20] VITALS: Ht 180.3 cm; Wt 87.1 kg
--- NOTE | ~2020-11-20 | P ---
[facility] [place] [address] PROCEDURE REPORT Name: SEAN DE Room #: 210-P [facility] Lance Calles#: [id number] Admission: 11/20/20 Attend Phys: Otto Kellogg MD Discharge: 11/21/20 Date of : 47 Report #: [id number] THIS REPORT FOR: cc: Jarrod Harrell James A. DO Couchonnal, Luis F. MD ~ ATRIAL FIBRILLATION AND ATRIAL FLUTTER ABLATION PREOPERATIVE DIAGNOSIS: Atrial fibrillation/atrial flutter. POSTOPERATIVE DIAGNOSIS: Atrial fibrillation/atrial flutter. PROCEDURE PERFORMED: 1. Atrial fibrillation ablation -- CPT code 83125. 2. 3D mapping, CPT code 36452. 3. Intracardiac echo, CPT code 32058. 4. Second pathway ablation -- CPT code 26600. DESCRIPTION OF PROCEDURE: The patient was brought to the EP laboratory in a fasting nonsedated state and placed under general anesthesia. I obtained access to the right femoral vein x3, placing an 8, 9, and 7-Faroese short sheath using modified Seldinger technique. Under fluoroscopy, I placed a decapolar catheter easily in the coronary sinus and ICE catheter into the right atrium. At baseline, the patient had evidence of a left common ostium and 2 right-sided pulmonary veins. The patient was systemically heparinized. A transseptal was performed using SL1 sheath and a [place] needle, which was straightforward. I then exchanged for the cryo sheath and placed a Lasso catheter in the left atrium created through the geometry of the left atrium. Next, I started by isolating the left common ostium, I performed a 3-minute followed by 4 minute freeze with good temps and this vein was then isolated. The right superior pulmonary vein underwent a 4-minute freeze, isolating at 31 seconds in the right inferior pulmonary vein, underwent a 4-minute freeze isolating at 80 seconds. Next, a repeat voltage map was created and showed that all veins were isolated. While isolating the right-sided veins, phrenic nerve pacing was performed, but there was never any phrenic nerve compromise. The patient was then prepped for his atrial flutter ablation. I placed an 8 mm ablation catheter and a ramp sheath into the right atrium. I was able to measure an AH interval of 91 milliseconds, and HV interval of 43 milliseconds. Preablation, the transisthmus conduction time was 135 milliseconds. Ablation was performed at 70 avalos and 60 degrees in a continuous drag lesion was performed. Additional ablation was performed where signals were noted. Then, I checked and there was evidence of bidirectional block with a transisthmus [facility] [address] [place] [address] PROCEDURE REPORT Name: SEAN DE Room #: 210-P [facility] Lance MDanitzaRDanitza#: [id number] Admission: 11/20/20 Attend Phys: Otto Kellogg MD Discharge: 11/21/20 Date of : 47 Report #: [id number] conduction time of 145 milliseconds. Using intracardiac ultrasound, there was no evidence of pericardial effusion. There were no other arrhythmias noted and the procedure was concluded. The patient received systemic protamine and once the ACT was with acceptable range, catheters and sheaths were pulled and hemostasis obtained. The patient awoke neurologically and hemodynamically intact. No complications and no significant bleeding. CONCLUSION: 1. Successful atrial fibrillation ablation. 2. Successful atrial flutter ablation with bidirectional block. By: 1134 2147 Otto Kellogg MD /nt
[~2020-11-20 06:18] MED LIST changes: -ELIQUIS5 MG PO
[2020-11-20] MEDS ORDERED: ELIQUIS5 MG PO (07:55)
[2020-11-20 07:58] LABS: ABSOLUTE NEUTROPHILS 3.3 thou/uL (1.4-8.2); BASOPHILS 0.7 % (0.0-2.0); EOSINOPHILS 2.1 % (0.0-3.0); HEMOGLOBIN 15.2 gm/dL (14.0-18.0); LYMPHOCYTES 27.6 % (24.0-44.0); MCH 29.8 pg (26.0-34.0); MCV 90.3 fL (80.0-100.0); MONOCYTES 9.4 % (1.0-8.0); PLATELET COUNT 138 thou/uL (150-400); POLYS 60.2 % (36.0-66.0); RBC 5.09 mil/uL (4.50-6.00); WBC 5.5 thou/uL (4.0-11.0)
[2020-11-20 08:08] LABS: CALCIUM 8.7 mg/dL (8.5-10.1); CREATININE 1.1 mg/dL (0.7-1.3); POTASSIUM 4.3 mmol/L (3.5-5.1)
[2020-11-20 08:14] LABS: ALBUMIN 3.6 g/dL (3.4-5.0); TOTAL BILIRUBIN 0.8 mg/dL (0.2-1.0)
[2020-11-20 08:21] LABS: APTT 27.1 Seconds (24.5-32.8); PROTIME 10.9 Seconds (10.5-12.1)
--- NOTE | 2020-11-20 13:27 | NUR ---
[age] YEAR OLD MALE ADMITTED TO 2N ROOM 210. PT ADMITTED FOR CATH/A FIB ABLATION. RIGHT GROIN SITE SOFT C/DI. VSS. PT DENIES PAIN. IVF INFUSING PER ORDER. BED REST UNTIL 1600. WILL CONTINUE TO MONITOR.
[2020-11-21 04:28] VITALS: BP 107/49
[2020-11-21 07:15] VITALS: BP 116/53
[2020-11-21 08:48] VITALS: BP 116/53
== END 2020-11-21 09:30 | disposition home or self-care (01) ==
LOC: CATH 06:18 → 2N 12:24
PROVIDERS: ADMIT Internal Medicine Cardiovascular Disease; ATTEND Internal Medicine Cardiovascular Disease
DX: I48.0 Paroxysmal atrial fibrillation (principal); I48.92 Unspecified atrial flutter; Z20.822 Contact with and (suspected) exposure to COVID-19; I25.10 Atherosclerotic heart disease of native coronary artery without angina pectoris; E78.5 Hyperlipidemia, unspecified; I10 Essential (primary) hypertension; Z85.46 Personal history of malignant neoplasm of prostate; Z79.899 Other long term (current) drug therapy; Z79.82 Long term (current) use of aspirin
CPT/HCPCS: 62110; 62900; 65020; 70005

== ENCOUNTER → 2021-02-17 | Outpatient (CLI) | payer OTHER, BC ==
[~2021-02-17] MED LIST changes: +ELIQUIS5 MG PO
== END ==
LOC: SJCVCIMAG 07:33
PROVIDERS: ATTEND Internal Medicine Cardiovascular Disease
DX: Z01.810 Encounter for preprocedural cardiovascular examination (principal); I21.09 ST elevation (STEMI) myocardial infarction involving other coronary artery of anterior wall; I25.10 Atherosclerotic heart disease of native coronary artery without angina pectoris; E78.5 Hyperlipidemia, unspecified; I48.0 Paroxysmal atrial fibrillation; E78.00 Pure hypercholesterolemia, unspecified; I10 Essential (primary) hypertension; Z79.82 Long term (current) use of aspirin; Z79.899 Other long term (current) drug therapy; Z88.8 Allergy status to other drugs, medicaments and biological substances; Z91.040 Latex allergy status; Z95.1 Presence of aortocoronary bypass graft; Z82.49 Family history of ischemic heart disease and other diseases of the circulatory system

== ENCOUNTER → 2021-02-18 | Outpatient (CLI) | payer OTHER, BC | LOC: SJCVC 10:49 | PROVIDERS: ATTEND Internal Medicine Cardiovascular Disease | DX: R94.31 Abnormal electrocardiogram [ECG] [EKG] (principal); I49.1 Atrial premature depolarization; I10 Essential (primary) hypertension; E78.5 Hyperlipidemia, unspecified; C61 Malignant neoplasm of prostate; Z88.8 Allergy status to other drugs, medicaments and biological substances; Z91.048 Other nonmedicinal substance allergy status; Z98.61 Coronary angioplasty status; Z79.82 Long term (current) use of aspirin; Z79.899 Other long term (current) drug therapy; Z98.890 Other specified postprocedural states ==

== ENCOUNTER → 2021-03-06 | Outpatient (CLI) | payer OTHER, BC ==
[2021-03-06 07:49] VITALS: BP 128/71
--- NOTE | 2021-03-07 12:48 | P ---
[facility] [place] [address] PROCEDURE REPORT Name: SEAN DE Room #: [facility].#: [id number] Admission: 03/06/21 Attend Phys: Otto Kellogg MD Discharge: Date of : 47 Report #: [id number] THIS REPORT FOR: cc: Jarrod Harrell,Otto Gustafson MD ~ DATE OF SERVICE: 03/06/2021 PROCEDURE PERFORMED: Implantable loop recorder. PREOPERATIVE DIAGNOSIS: Atrial fibrillation. POSTOPERATIVE DIAGNOSIS: Atrial fibrillation. DESCRIPTION OF PROCEDURE: The patient underwent informed consent. He was prepped in a standard fashion. I injected lidocaine at the incision site. Incision was made. Device injected, tested and found to be functioning normally. The incision was sutured closed and a dressing was placed. No procedure related complications. The implanted device was [id number] Reveal model number [id number]. CONCLUSION: Successful implantation of a loop recorder. <ELECTRONICALLY SIGNED> By: Otto Kellogg MD 03/07/21 1248 [id number] Otto Kellogg MD /nt
== END | disposition home or self-care (01) ==
LOC: CATH 06:36
PROVIDERS: ATTEND Internal Medicine Cardiovascular Disease
DX: I48.91 Unspecified atrial fibrillation (principal); I25.10 Atherosclerotic heart disease of native coronary artery without angina pectoris; Z98.890 Other specified postprocedural states; Z79.899 Other long term (current) drug therapy; Z79.01 Long term (current) use of anticoagulants; Z91.040 Latex allergy status; Z88.8 Allergy status to other drugs, medicaments and biological substances